=== PATIENT | female | born 1985 | race Hispanic/Latino ===

== ENCOUNTER 2024-04-09 04:29 | Inpatient (IN) | payer BC ==
[~2024-04-09] VITALS: Ht 165.1 cm; Wt 76.7 kg
[~2024-04-09 04:29] MED LIST: DOCU-116 PO; IBUP-2077 PO; PREN1TAB80 PO
[2024-04-09 05:15] LABS: APPEARANCE,URINE CLOUDY (CLEAR); BILIRUBIN,URINE NEGATIVE (NEGATIVE); COLOR,URINE LIGHT-YELLOW (YELLOW); GLUCOSE, URINE (UA) NEGATIVE (NEGATIVE); KETONES,URINE NEGATIVE (NEGATIVE); LEUKOCYTE ESTERASE ,URINE NEGATIVE Leu/uL (NEGATIVE); NITRATE,URINE NEGATIVE (NEGATIVE); OCCULT BLOOD,URINE NEGATIVE (NEGATIVE); PROTEIN,URINE NEGATIVE (NEGATIVE); UROBILINOGEN,URINE 0.2 mg/dL (0.2-1.0)
[2024-04-09 05:19] LABS: ADD UA MICROSCOPIC YES
[2024-04-09 05:20] LABS: MUCUS,URINE RARE LPF (None Seen); SQUAMOUS EPITHELIAL CELL,UR FEW /HPF (0-2)
[2024-04-09] MEDS ORDERED: PROMETHAZINE HCL 25 MG/ML 1ML AMPULE IM PRN (05:30)
[2024-04-09] MEDS ORDERED: OXYTOCIN-LR 30 UNITS/500ML 500 ML IV SCH (05:30)
[2024-04-09] MEDS ORDERED: MEPERIDINE-PF 50 MG/ML SYG IVP PRN (05:30)
[2024-04-09 05:39] LABS: MEAN CORPUSCULAR HEMOGLOBIN 29.9 pg (27.0-33.0); MEAN CORPUSCULAR HGB CONC 33.2 g/dL (32.0-36.0); MEAN CORPUSCULAR VOLUME 90.3 fL (79-99); RED BLOOD CELL COUNT(AUTO) 4.21 MIL/uL (4.00-5.50); RED CELL DISTRIBUTION WIDTH 13.5 % (11.0-15.5); WHITE BLOOD COUNT (AUTO) 8.1 K/uL (4.8-10.8)
[2024-04-09] MEDS ORDERED: LACTATED RINGERS 500 ML 500 ML IV PRN (06:00)
[2024-04-09] MEDS ORDERED: ROPIVACAINE 0.2% 2MG/ML 100ML VIAL EP SCH (06:00)
[2024-04-09] MEDS ORDERED: NALOXONE HCL 0.4 MG/1 ML ML IV PRN (06:00)
[2024-04-09 06:14] LABS: HIV 1&2 ANTIBODY Non-Reactive (Negative)
[2024-04-09 06:15] LABS: HIV-1 p24 Antigen Non-Reactive (Negative)
[2024-04-09] MEDS: OXYTOCIN-LR 30 UNITS/500ML 500 ML IV SCH ×2 (06:38→14:03)
[2024-04-09] MEDS: LACTATED RINGERS 1000ML 1,000 ML IV PRN (06:50)
[2024-04-09] MEDS ORDERED: FENTANYL CITRATE PF 50 MCG/1 ML 2ML VIAL ONE (08:56)
[2024-04-09] MEDS: EPHEDRINE SULFATE 50 MG/ML AMPULE IVP PRN (09:50)
[2024-04-09] MEDS ORDERED: LIDOCAINE HCL 1% 20 ML VIAL ONE (11:01)
[2024-04-09] MEDS ORDERED: MISOPROSTOL 200 MCG TABLET ONE (11:01)
[2024-04-09] MEDS ORDERED: DIPH,PERTUSS(ACELL),TET VAC/PF 0.5 ML VIAL IM PRN (12:30)
[2024-04-09] MEDS ORDERED: WITCH HAZEL 1 PAD TP PRN (12:30)
[2024-04-09] MEDS ORDERED: ACETAMINOPHEN WITH CODEINE 1 TAB TAB PO PRN (12:30)
[2024-04-09] MEDS ORDERED: BENZOCAINE/LANOLIN/ALOE VERA 60 ML AEROSOL TP PRN (12:30)
[2024-04-09] MEDS ORDERED: MEASLES/MUMPS/RUBELLA VACCINE, LIVE 0.5 ML/VIAL SQ PRN (12:30)
[2024-04-09] MEDS ORDERED: LANOLIN 30GM OINTMENT TP PRN (12:30)
[2024-04-09] MEDS ORDERED: PREN1TAB80 PO (13:13)
[2024-04-09] MEDS: IBUPROFEN 600 MG TABLET PO PRN (13:37)
[2024-04-09 14:05] LABS: RAPID PLASMA REAGIN NONREACTIVE (NONREACTIVE)
[2024-04-09] MEDS ORDERED: EPHEDRINE SULFATE 50 MG/ML AMPULE IV ONE (15:00)
[2024-04-09 20:00] VITALS: BP 122/67
[2024-04-09 20:30] VITALS: BP 108/55; PULSE 91; RESP 20
[2024-04-09] MEDS: DOCUSATE SODIUM 100 MG CAP PO SCH (20:36)
[2024-04-09 21:48] LABS: HEMATOCRIT 31.5 % (36-48); MEAN CORPUSCULAR HEMOGLOBIN 30.4 pg (27.0-33.0); MEAN CORPUSCULAR VOLUME 92.1 fL (79-99); RED BLOOD CELL COUNT(AUTO) 3.42 MIL/uL (4.00-5.50); RED CELL DISTRIBUTION WIDTH 13.7 % (11.0-15.5); WHITE BLOOD COUNT (AUTO) 17.4 K/uL (4.8-10.8)
[2024-04-10] VITALS (9 sets, daily range): BP systolic 80–103; BP diastolic 48–67; PULSE 71–112; RESP 16–21
[2024-04-10 07:25] LABS: HEMATOCRIT 24.4 % (36-48); MEAN CORPUSCULAR HEMOGLOBIN 30.8 pg (27.0-33.0); MEAN CORPUSCULAR HGB CONC 33.6 g/dL (32.0-36.0); MEAN CORPUSCULAR VOLUME 91.7 fL (79-99); RED BLOOD CELL COUNT(AUTO) 2.66 MIL/uL (4.00-5.50); RED CELL DISTRIBUTION WIDTH 13.9 % (11.0-15.5); WHITE BLOOD COUNT (AUTO) 13.8 K/uL (4.8-10.8)
[2024-04-10] MEDS: ACETAMINOPHEN 325 MG TAB PO PRN (13:12)
[2024-04-10 16:45] LABS: HEMATOCRIT 22.6 % (36-48)
[2024-04-11] VITALS: BP 88/53; PULSE 70; RESP 20
[2024-04-11 03:58] VITALS: BP 95/57; PULSE 71; RESP 19
[2024-04-11 04:00] VITALS: BP 95/57; PULSE 71; RESP 18
[2024-04-11 07:30] VITALS: BP 93/48; PULSE 75; RESP 18
[2024-04-11 08:17] LABS: HEMATOCRIT 27.7 % (36-48); MEAN CORPUSCULAR HEMOGLOBIN 30.7 pg (27.0-33.0); MEAN CORPUSCULAR HGB CONC 33.6 g/dL (32.0-36.0); MEAN CORPUSCULAR VOLUME 91.4 fL (79-99); RED BLOOD CELL COUNT(AUTO) 3.03 MIL/uL (4.00-5.50); RED CELL DISTRIBUTION WIDTH 13.8 % (11.0-15.5); WHITE BLOOD COUNT (AUTO) 13.8 K/uL (4.8-10.8)
[2024-04-11 11:25] VITALS: BP 105/69; PULSE 80; RESP 18
== END 2024-04-11 13:35 | disposition home or self-care (01) | DRG 807 ==
LOC: EDH 04:29 → OBSVTOIN 04:34 → LDH 04:34 → WSH 19:00
PROVIDERS: ADMIT Obstetrics & Gynecology; ATTEND Obstetrics & Gynecology
PROC: 0KQM0ZZ Repair Perineum Muscle, Open Approach (ICD-10-PCS; principal; 2024-04-09)
PROC: 10E0XZZ Delivery of Products of Conception, External Approach (ICD-10-PCS; 2024-04-09)
PROC: 3E0R3BZ Introduction of Anesthetic Agent into Spinal Canal, Percutaneous Approach (ICD-10-PCS; 2024-04-09)
PROC: 00HU33Z Insertion of Infusion Device into Spinal Canal, Percutaneous Approach (ICD-10-PCS; 2024-04-09)
PROC: 30233N1 Transfusion of Nonautologous Red Blood Cells into Peripheral Vein, Percutaneous Approach (ICD-10-PCS; 2024-04-10)
DX: O77.0 Labor and delivery complicated by meconium in amniotic fluid (principal); Z37.0 Single live birth; O70.1 Second degree perineal laceration during delivery; O99.02 Anemia complicating childbirth; Z3A.39 39 weeks gestation of pregnancy
CPT/HCPCS: 36415; 76856; 81001; 81003; 82120; 82948; 85014; 85018; 85027; 86592; 86701; 86850; 86900; 86901; 86923; 87086; 87340; 87390; A4314; A4351; G0378; J2795; J3010; J3490; J7120; P9016